=== PATIENT | male | born 1955 | race African-American/Black ===

== ENCOUNTER 2022-05-12 10:17 | Emergency (ER) | payer MEDICARE, OTHER ==
[~2022-05-12] VITALS: Ht 167.6 cm; Wt 64.4 kg
--- NOTE | 2022-05-12 10:17 | NUR ---
BIRGIT for c/c N/V. A/O x 3
[2022-05-12] MEDS ORDERED: ONDANSETRON HCL/PF 4 MG/2 ML VIAL ONE (10:42)
--- NOTE | 2022-05-12 10:45 | NUR ---
AT BEDSIDE FOR EVAL
--- NOTE | 2022-05-12 10:55 | NUR ---
ESTABLISHED IV ACCESS 20G RIGHT WRIST. BLOOD DRAWN AND SENT TO LAB.
[2022-05-12] MEDS ORDERED: ONDANSETRON HCL/PF 4 MG/2 ML VIAL IVP ONE (11:00)
[2022-05-12 11:02] LABS: BASOPHILS # (AUTO) 0.1 K/uL (0.0-0.2); EOSINOPHILS % (AUTO) 3.2 % (0.0-6.0); HEMATOCRIT 46 % (39-51); HEMOGLOBIN 14.5 g/dL (13.5-17.5); MEAN CORPUSCULAR HGB CONC 32 g/dl (31.0-36.0); MEAN CORPUSCULAR VOLUME 89 fL (80-96); MONOCYTES # (AUTO) 0.2 K/uL (0.1-1.30); MONOCYTES % (AUTO) 3.2 % (2.0-12.0); NEUTROPHILS # (AUTO) 5.4 K/uL (1.8-8.9); NEUTROPHILS % (AUTO) 78.6 % (43.0-81.0); PLATELET COUNT (AUTO) 189 K/uL (150-450); RED BLOOD CELL COUNT(AUTO) 5.17 MIL/uL (4.5-6.0); WHITE BLOOD COUNT (AUTO) 6.9 K/uL (4.3-11.0)
[2022-05-12 11:18] LABS: ALBUMIN 3.8 g/dL (3.4-5.0); BILIRUBIN,DIRECT 0.1 mg/dL (0.0-0.2); BILIRUBIN,TOTAL 0.4 mg/dL (0.2-1.0); CALCIUM, SERUM 9.5 mg/dL (8.5-10.1); CREATININE 1.1 mg/dL (0.6-1.3); POTASSIUM 5.1 mmol/L (3.5-5.1); TOTAL PROTEIN, SERUM 8.9 g/dL (6.4-8.2)
--- NOTE | 2022-05-12 11:40 | NUR ---
PT IS A/O X2 C/O N/V BREATHING UNLABORED ON ROOM AIR, O2SAT 99%. NO VOMITING REPORT SINCE ARRIVAL TO ER.
--- NOTE | 2022-05-12 11:40 | NUR ---
PT TAKEN TO CT
--- NOTE | 2022-05-12 12:15 | NUR ---
URINE COLLECTED AND SENT TO LAB
[2022-05-12] MEDS ORDERED: METOCLOPRAMIDE HCL 10 MG/2 ML VIAL ONE (12:29)
[2022-05-12] MEDS ORDERED: METOCLOPRAMIDE HCL 10 MG/2 ML VIAL IV ONE (12:30)
[2022-05-12] MEDS ORDERED: DOCU100C36 PO (12:39)
[2022-05-12] MEDS ORDERED: METO-295 PO (12:39)
--- NOTE | 2022-05-12 12:44 | NUR ---
[facility] CALLED FOR TRANSPORT, ETA 20-30 MIN PER BHARATH. FACILITY NOTIFIED.
--- NOTE | 2022-05-12 13:19 | NUR ---
REPORT GIVEN TO HALEIGH BECERRA
[2022-05-12 14:52] LABS: BILIRUBIN,URINE NEGATIVE (NEGATIVE); COLOR,URINE YELLOW (YELLOW); LEUKOCYTE ESTERASE ,URINE NEGATIVE (NEGATIVE); NITRITE, URINE NEGATIVE (NEGATIVE); PROTEIN,URINE NEGATIVE (NEGATIVE); UGLUCOSE NEGATIVE (NEGATIVE); UROBILINOGEN,URINE 0.2 EU/dL (0.2)
[2022-05-12 15:12] VITALS: BP 129/76
== END 2022-05-12 15:12 | disposition home or self-care (01) ==
LOC: ER 10:23
DX: K59.00 Constipation, unspecified (principal); R10.9 Unspecified abdominal pain; R11.2 Nausea with vomiting, unspecified; J44.9 Chronic obstructive pulmonary disease, unspecified; Z86.73 Personal history of transient ischemic attack (TIA), and cerebral infarction without residual deficits
CPT/HCPCS: 99285; 74176; 96374; 96375; 85025; 80048; 83690; 80076; 81003; 36415; J2765; J2405

== ENCOUNTER 2024-02-08 14:49 | Inpatient (IN) | payer MEDICARE, OTHER ==
[~2024-02-08] VITALS: Ht 167.6 cm; Wt 44.9 kg
[~2024-02-08 14:49] MED LIST: DOCU100C36 PO; METO-295 PO
[2024-02-08 16:00] VITALS: BP 98/59; TEMP 97.7; O2SAT 95
[2024-02-08] MEDS ORDERED: LEVA0.31 NEB (16:14)
[2024-02-08] MEDS ORDERED: DOCU100C36 PO (16:14)
[2024-02-08] MEDS ORDERED: QUET50TA PO (16:14)
[2024-02-08] MEDS ORDERED: NA P133E RC (16:14)
[2024-02-08] MEDS ORDERED: BOOST VHC PO (16:14)
[2024-02-08] MEDS ORDERED: ASCO500T10 PO (16:14)
[2024-02-08] MEDS ORDERED: ACET325T53 PO (16:14)
[2024-02-08] MEDS ORDERED: MULT-213 PO (16:14)
[2024-02-08] MEDS ORDERED: ATOR80TA PO (16:14)
[2024-02-08] MEDS ORDERED: CHOL100045 PO (16:14)
[2024-02-08] MEDS ORDERED: MIRT7.5T10 PO (16:14)
[2024-02-08] MEDS ORDERED: ASPI-1169 PO (16:14)
[2024-02-08] MEDS ORDERED: BISA10SU11 RC (16:14)
[2024-02-08] MEDS ORDERED: MAGN400O6 PO (16:14)
[2024-02-08] MEDS ORDERED: AMIN30LI24 PO (16:14)
[2024-02-08] MEDS ORDERED: DIVA125C5 PO (16:14)
[2024-02-08] MEDS ORDERED: ACETAMINOPHEN 325 MG TABLET PO PRN (19:00)
[2024-02-08] MEDS ORDERED: MAGNESIUM HYDROXIDE 30 ML UDC PO PRN ×2 (19:00)
[2024-02-08] MEDS ORDERED: BISACODYL SUPP (10 MG) 10 MG/SUPP.RECT SUPP.RECT RC PRN (19:00)
[2024-02-08] MEDS ORDERED: NA PHOS,M-B/NA PHOS,DI-BA 1 EA ENEMA RC PRN (19:00)
[2024-02-08] MEDS ORDERED: MAG HYDROX/AL HYDROX/SIMETH 30 ML UDC PO PRN (19:00)
[2024-02-08] MEDS ORDERED: ONDANSETRON HCL/PF 4 MG/2 ML VIAL IVP PRN (19:00)
[2024-02-08] MEDS: CEFTRIAXONE 1 G in IV D5W 50 ML IV SCH (19:58)
[2024-02-08 20:00] VITALS: BP 108/65; TEMP 97.5; O2SAT 95
[2024-02-08] MEDS: ALBUTEROL FS 2.5 MG/0.5 ML VIAL.NEB NEB SCH (20:16)
[2024-02-08] MEDS: IPRATROPIUM NEB FS 0.5 MG/2.5 ML AMPUL.NEB NEB SCH (20:16)
[2024-02-08 20:18] VITALS: O2SAT 95
[2024-02-08] MEDS: AZITHROMYCIN 500 MG in IV D5W 250 ML IV SCH (20:27)
[2024-02-08 20:33] VITALS: O2SAT 99
[2024-02-08] MEDS: methylPREDNISolone SOD SUCC 40 MG/ML VIAL IV SCH (21:02)
[2024-02-08] MEDS: DIVALPROEX SODIUM 125 MG CAP.SPRINK PO SCH (21:02)
[2024-02-08] MEDS: ATORVASTATIN 40 MG TABLET PO SCH (21:02)
[2024-02-08] MEDS: QUETIAPINE FUMARATE 25 MG TABLET PO SCH (21:03)
[2024-02-09] VITALS (13 sets, daily range): BP systolic 90–110; BP diastolic 60–81; TEMP 97.2–98.7; O2SAT 95–100
[2024-02-09] MEDS: ASPIRIN 81 MG TAB.CHEW PO SCH (08:32)
[2024-02-09] MEDS: DOCUSATE SODIUM 100 MG CAPSULE PO SCH (08:32)
[2024-02-09] MEDS: ASCORBIC ACID 500 MG TABLET PO SCH (08:32)
[2024-02-09] MEDS: CHOLECALCIFEROL 1,000 UNIT TABLET (VIT D3) PO SCH (08:32)
[2024-02-09 09:55] LABS: BASOPHILS % (AUTO) 0.1 % (0.0-2.0); HEMATOCRIT 31 % (39-51); HEMOGLOBIN 9.2 g/dL (13.5-17.5); LYMPHOCYTES # (AUTO) 0.7 K/uL (0.8-4.8); LYMPHOCYTES % (AUTO) 10.2 % (20.0-44.0); MEAN CORPUSCULAR HEMOGLOBIN 25 PG (26.0-33.0); MEAN CORPUSCULAR HGB CONC 30 g/dl (31.0-36.0); MEAN CORPUSCULAR VOLUME 81 fL (80-96); MONOCYTES % (AUTO) 0.7 % (2.0-12.0); NEUTROPHILS # (AUTO) 5.9 K/uL (1.8-8.9); PLATELET COUNT (AUTO) 424 K/uL (150-450); RED BLOOD CELL COUNT(AUTO) 3.76 MIL/uL (4.5-6.0); RED CELL DISTRIBUTION WIDTH 19.1 % (11.5-15.0); WHITE BLOOD COUNT (AUTO) 6.7 K/uL (4.3-11.0)
[2024-02-09] MEDS: ACETYLCYSTEINE 10% SOLN 400 MG/4 ML VIAL NEB SCH (10:00)
[2024-02-09 10:11] LABS: CALCIUM, SERUM 9.1 mg/dL (8.5-10.1); CREATININE 0.8 mg/dL (0.6-1.3); MAGNESIUM 2.4 mg/dL (1.8-2.4); PHOSPHORUS 3.5 mg/dL (2.5-4.9); POTASSIUM 3.8 mmol/L (3.5-5.1)
[2024-02-09] MEDS: HEPARIN SODIUM, PORCINE 5000 UNITS/1 ML VIAL SQ SCH (10:21)
[2024-02-09 10:22] LABS: THYROID STIMULATING HORMONE 0.83 uIU/mL (0.358-3.74)
[2024-02-09] MEDS: PIPERACILLIN /TAZOBACTAM 3.375 G in IV D5W 50 ML IV SCH (10:50)
[2024-02-09] MEDS: VANCOMYCIN 1 GM in IV D5W 250 ML IV ONE (10:58)
[2024-02-09] MEDS: VANCOMYCIN 750 MG in IV D5W 250 ML IV SCH (22:49)
[2024-02-10] VITALS (10 sets, daily range): BP systolic 95–114; BP diastolic 53–82; TEMP 97.7–98.9; O2SAT 93–100
[2024-02-10 12:10] LABS: BASOPHILS % (AUTO) 0.4 % (0.0-2.0); HEMATOCRIT 27 % (39-51); LYMPHOCYTES # (AUTO) 0.7 K/uL (0.8-4.8); LYMPHOCYTES % (AUTO) 13.8 % (20.0-44.0); MEAN CORPUSCULAR HEMOGLOBIN 24 PG (26.0-33.0); MEAN CORPUSCULAR HGB CONC 30 g/dl (31.0-36.0); MEAN CORPUSCULAR VOLUME 82 fL (80-96); MONOCYTES # (AUTO) 0.1 K/uL (0.1-1.30); MONOCYTES % (AUTO) 2.7 % (2.0-12.0); NEUTROPHILS # (AUTO) 4.5 K/uL (1.8-8.9); NEUTROPHILS % (AUTO) 83.1 % (43.0-81.0); PLATELET COUNT (AUTO) 366 K/uL (150-450); RED BLOOD CELL COUNT(AUTO) 3.29 MIL/uL (4.5-6.0); RED CELL DISTRIBUTION WIDTH 18.9 % (11.5-15.0); WHITE BLOOD COUNT (AUTO) 5.4 K/uL (4.3-11.0)
[2024-02-10 12:19] LABS: CALCIUM, SERUM 8.7 mg/dL (8.5-10.1); CREATININE 0.8 mg/dL (0.6-1.3); POTASSIUM 4.2 mmol/L (3.5-5.1)
[2024-02-11] VITALS (17 sets, daily range): BP systolic 97–120; BP diastolic 58–86; TEMP 98.1–98.6; O2SAT 92–100
[2024-02-11 10:27] LABS: BASOPHILS % (AUTO) 0.2 % (0.0-2.0); HEMATOCRIT 27 % (39-51); HEMOGLOBIN 8.4 g/dL (13.5-17.5); LYMPHOCYTES # (AUTO) 0.7 K/uL (0.8-4.8); LYMPHOCYTES % (AUTO) 15.8 % (20.0-44.0); MEAN CORPUSCULAR HEMOGLOBIN 24 PG (26.0-33.0); MEAN CORPUSCULAR HGB CONC 31 g/dl (31.0-36.0); MEAN CORPUSCULAR VOLUME 78 fL (80-96); MONOCYTES # (AUTO) 0.2 K/uL (0.1-1.30); MONOCYTES % (AUTO) 3.5 % (2.0-12.0); NEUTROPHILS # (AUTO) 3.6 K/uL (1.8-8.9); NEUTROPHILS % (AUTO) 80.5 % (43.0-81.0); PLATELET COUNT (AUTO) 394 K/uL (150-450); RED BLOOD CELL COUNT(AUTO) 3.49 MIL/uL (4.5-6.0); WHITE BLOOD COUNT (AUTO) 4.4 K/uL (4.3-11.0)
[2024-02-11] MEDS: ENSURE ENLIVE 237 ML LIQUID (VANILLA) PO SCH (17:16)
[2024-02-11] MEDS: ACETAMINOPHEN 325 MG TABLET PO PRN (23:38)
[2024-02-12] VITALS (15 sets, daily range): BP systolic 108–137; BP diastolic 60–84; TEMP 97.9–98.5; O2SAT 94–99
[2024-02-12 07:29] LABS: BASOPHILS % (AUTO) 0.4 % (0.0-2.0); HEMATOCRIT 26 % (39-51); HEMOGLOBIN 7.8 g/dL (13.5-17.5); LYMPHOCYTES # (AUTO) 1.3 K/uL (0.8-4.8); LYMPHOCYTES % (AUTO) 23.1 % (20.0-44.0); MEAN CORPUSCULAR HEMOGLOBIN 24 PG (26.0-33.0); MEAN CORPUSCULAR HGB CONC 30 g/dl (31.0-36.0); MEAN CORPUSCULAR VOLUME 79 fL (80-96); MONOCYTES # (AUTO) 0.3 K/uL (0.1-1.30); MONOCYTES % (AUTO) 4.9 % (2.0-12.0); NEUTROPHILS % (AUTO) 71.6 % (43.0-81.0); PLATELET COUNT (AUTO) 368 K/uL (150-450); WHITE BLOOD COUNT (AUTO) 5.6 K/uL (4.3-11.0)
[2024-02-12 10:23] LABS: IRON, SERUM 11 ug/dl (50-175); TOTAL IRON BINDING CAPACITY 226 ug/dl (250-450)
[2024-02-12 10:38] LABS: FERRITIN 29 ng/mL (8-388)
[2024-02-12] MEDS: SOD FERRIC GLUC 125 MG in IV NS 0.9% 100 ML IV STA (12:56)
[2024-02-12] MEDS ORDERED: ALBUMIN 25% 25 GM in PREMIX 1 EA IV PRN (13:30)
[2024-02-13] VITALS (7 sets, daily range): BP systolic 113–124; BP diastolic 62–97; TEMP 97.5–98.4; O2SAT 87–96
[2024-02-13 08:26] LABS: OCCULT BLOOD STOOL POSITIVE (NEGATIVE)
[2024-02-13] MEDS ORDERED: LEVO500T90 PO (10:04)
[2024-02-13] MEDS ORDERED: PRED20TA PO (10:04)
[2024-02-13] MEDS: Z GUARD REMEDY 4 OZ OINT TP PRN (10:15)
[2024-02-13 10:25] LABS: BASOPHILS % (AUTO) 0.6 % (0.0-2.0); HEMATOCRIT 28 % (39-51); HEMOGLOBIN 8.6 g/dL (13.5-17.5); LYMPHOCYTES # (AUTO) 0.8 K/uL (0.8-4.8); MEAN CORPUSCULAR HEMOGLOBIN 24 PG (26.0-33.0); MEAN CORPUSCULAR HGB CONC 30 g/dl (31.0-36.0); MEAN CORPUSCULAR VOLUME 78 fL (80-96); MONOCYTES # (AUTO) 0.2 K/uL (0.1-1.30); MONOCYTES % (AUTO) 4.7 % (2.0-12.0); NEUTROPHILS # (AUTO) 4.1 K/uL (1.8-8.9); NEUTROPHILS % (AUTO) 78.7 % (43.0-81.0); PLATELET COUNT (AUTO) 374 K/uL (150-450); RED BLOOD CELL COUNT(AUTO) 3.63 MIL/uL (4.5-6.0); RED CELL DISTRIBUTION WIDTH 19.1 % (11.5-15.0); WHITE BLOOD COUNT (AUTO) 5.3 K/uL (4.3-11.0)
[2024-02-13 11:26] LABS: CALCIUM, SERUM 9.1 mg/dL (8.5-10.1); CREATININE 0.8 mg/dL (0.6-1.3); MAGNESIUM 2.1 mg/dL (1.8-2.4); PHOSPHORUS 3.6 mg/dL (2.5-4.9); POTASSIUM 4.3 mmol/L (3.5-5.1)
[2024-02-13] MEDS: PIPERACILLIN /TAZOBACTAM 3.375 G in IV D5W 100 ML IV SCH (13:00)
[2024-02-13] MEDS: SOD FERRIC GLUC 125 MG in IV NS 0.9% 100 ML IV SCH (14:00)
== END 2024-02-13 15:42 | DRG 177 ==
LOC: TELE 14:49
PROVIDERS: ADMIT Internal Medicine; ATTEND Internal Medicine
DX: J15.69 Pneumonia due to other Gram-negative bacteria (principal); G93.41 Metabolic encephalopathy; R53.2 Functional quadriplegia; J96.91 Respiratory failure, unspecified with hypoxia; J44.1 Chronic obstructive pulmonary disease with (acute) exacerbation; R64 Cachexia; K92.2 Gastrointestinal hemorrhage, unspecified; J44.0 Chronic obstructive pulmonary disease with (acute) lower respiratory infection; Z68.1 Body mass index [BMI] 19.9 or less, adult; D62 Acute posthemorrhagic anemia; G40.909 Epilepsy, unspecified, not intractable, without status epilepticus; E86.0 Dehydration; F25.9 Schizoaffective disorder, unspecified; K21.9 Gastro-esophageal reflux disease without esophagitis; Z66 Do not resuscitate; Z87.440 Personal history of urinary (tract) infections; M62.442 Contracture of muscle, left hand; M62.441 Contracture of muscle, right hand; M62.462 Contracture of muscle, left lower leg; M62.461 Contracture of muscle, right lower leg; Z86.73 Personal history of transient ischemic attack (TIA), and cerebral infarction without residual deficits; F29 Unspecified psychosis not due to a substance or known physiological condition; F03.90 Unspecified dementia, unspecified severity, without behavioral disturbance, psychotic disturbance, mood disturbance, and anxiety
CPT/HCPCS: 36415; 71045-TC; 80048-TC; 80061-TC; 80202-TC; 82272-TC; 82728-TC; 83540-TC; 83735-TC; 84100-TC; 84443-TC; 85025-TC; 85027-TC; 87081-TC; 94760-TC; 94761-TC; 94762-TC; 94799-TC; A4223; G0378; J0456; J0696; J1644; J2543; J2916; J2919; J3370; J3371; J7030; J7050; J7060